=== PATIENT | male | born 1960 | race Caucasian/White ===

== ENCOUNTER 2017-07-30 19:36 | Emergency (ER) | payer MEDICAID ==
[~2017-07-30] VITALS: Ht 182.9 cm; Wt 75.2 kg
[~2017-07-30 19:36] MED LIST: ALLO100T PO; CLON-527 PO; FLUO15CR TOP; LORA10TA65 PO; METH4TAB3 PO; PRED20TA PO
[2017-07-30] MEDS ORDERED: famotidine/PF 10 mg/ml inj IV ONE (20:25)
[2017-07-30] MEDS ORDERED: normal saline 1000ML IV soln IVB ONE ×2 (20:25)
[2017-07-30] MEDS ORDERED: ondansetron/PF 4mg/2ml inj IV ONE (20:25)
[2017-07-30] MEDS ORDERED: PANT-47 PO (20:33)
[2017-07-30 21:48] VITALS: BP 110/74
== END 2017-07-30 21:50 | disposition home or self-care (01) ==
LOC: ER 19:37
DX: K52.9 Noninfective gastroenteritis and colitis, unspecified (principal); G89.29 Other chronic pain; F17.200 Nicotine dependence, unspecified, uncomplicated; F15.10 Other stimulant abuse, uncomplicated
CPT/HCPCS: 96361; 96374; 96375; 99284; J2405; J3490; J7030

== ENCOUNTER 2017-11-27 08:27 | Emergency (ER) | payer MEDICAID ==
[~2017-11-27] VITALS: Ht 182.9 cm; Wt 72.7 kg
[~2017-11-27 08:27] MED LIST changes: +PANT-47 PO
[2017-11-27] MEDS ORDERED: normal saline 1000ML IV soln IV ONE (08:30)
[2017-11-27] MEDS ORDERED: potassium Cl oral solution 20 MEQ/15 ML PO ONE (08:30)
[2017-11-27] MEDS ORDERED: magnesium 2GM in 50ml NS 50 ML IV ONE (08:30)
[2017-11-27] MEDS ORDERED: LORazepam 2 mg/ml vial IV ONE (08:30)
[2017-11-27 08:54] LABS: BASOPHILS # (AUTO) 0.1 X10'3 (0-0.2); BASOPHILS % (AUTO) 0.7 % (0-1); EOSINOPHILS # (AUTO) 0.7 X10'3 (0-0.9); EOSINOPHILS % (AUTO) 6.6 % (0-6); HEMATOCRIT 40.9 % (42.0-52.0); HEMOGLOBIN 14.3 g/dl (14.0-17.9); LYMPHOCYTES # (AUTO) 1.4 X10'3 (1.1-4.8); LYMPHOCYTES % (AUTO) 13.7 % (21-51); MEAN CORPUSCULAR HEMOGLOBIN 30.8 PG (27.0-31.0); MEAN CORPUSCULAR HGB CONC 34.9 % (33.0-36.5); MEAN CORPUSCULAR VOLUME 88.1 FL (78-98); MEAN PLATELET VOLUME 8.4 FL (7.4-10.4); MONOCYTES # (AUTO) 0.7 X10'3 (0-0.9); MONOCYTES % (AUTO) 6.5 % (2-12); NEUTROPHILS # (AUTO) 7.4 X10'3 (1.8-7.7); NEUTROPHILS % (AUTO) 72.5 % (42-75); PLATELET COUNT 206 X10'3 (140-440); RED BLOOD COUNT 4.64 X10'6 (4.70-6.10); WHITE BLOOD COUNT 10.2 X10'3 (4.5-11.0)
[2017-11-27 09:09] LABS: ALANINE AMINOTRANSFERASE 25 U/L (12-78); ALBUMIN 3.5 G/DL (3.4-5.0); ALKALINE PHOSPHATASE 85 IU/L (46-116); ANION GAP 15 (8-16); ASPARTATE AMINO TRANSFERASE 33 U/L (10-37); BILIRUBIN,TOTAL 0.7 MG/DL (0.1-1.0); BLOOD UREA NITROGEN 28 MG/DL (7-18); BUN/CREATININE RATIO 19.3 (5.4-32.0); CALCIUM 8.9 MG/DL (8.5-10.1); CHLORIDE 104 MMOL/L (99-107); CREATININE 1.45 MG/DL (0.60-1.10); GLUCOSE 101 MG/DL (70-104); POTASSIUM 3.6 MMOL/L (3.5-5.1); SODIUM 141 MMOL/L (135-145); TOTAL CARBON DIOXIDE 21.7 MMOL/L (24-32); TOTAL PROTEIN 7.1 G/DL (6.4-8.2); eGFR 50 ML/MIN
[2017-11-27 09:10] LABS: CREATINE KINASE 569 U/L (39-308); ETHANOL < 0.010 GM/DL (0.0-0.010)
[2017-11-27 09:30] LABS: CLARITY,URINE CLEAR (Clear); COLOR,URINE YELLOW (Yellow); GLUCOSE, URINE NEGATIVE (Neg); KETONES,URINE 15 mg/dl (Neg); LEUKOCYTE ESTERASE ,URINE NEGATIVE (Neg); NITRITES, URINE NEGATIVE (Neg); OCCULT BLOOD,URINE TRACE-INTACT (Neg); PROTEIN,URINE TRACE mg/dl (Neg); UA COLLECTION TYPE STRAIGHT CATH; UROBILINOGEN,URINE 0.2 E.U/dL (0.2-1.0)
[2017-11-27 09:35] LABS: SQUAMOUS EPITHELIAL CELL,UR FEW /LPF (FEW)
[2017-11-27 09:36] LABS: BACTERIA,URINE FEW /HPF (Neg); TRANSITIONAL EPI CELLS,URINE FEW /HPF; WBC,URINE NONE SEEN /HPF (0-4)
[2017-11-27 09:38] LABS: URINE AMPHETAMINE SCREEN POSITIVE (Neg); URINE BARBITUATE SCREEN NEGATIVE (Neg); URINE BENZODIAZEPINES SCREEN NEGATIVE (Neg); URINE CANNABINOID SCREEN NEGATIVE (Neg); URINE COCAINE SCREEN NEGATIVE (Neg); URINE METHADONE SCREEN NEGATIVE (Neg); URINE OPIATE SCREEN NEGATIVE (Neg); URINE PHENCYCLIDINE SCREEN NEGATIVE (Neg)
[2017-11-27 10:55] VITALS: BP 104/57
== END 2017-11-27 10:58 | disposition home or self-care (01) ==
LOC: ER 08:27
DX: G40.909 Epilepsy, unspecified, not intractable, without status epilepticus (principal); F32.9 Major depressive disorder, single episode, unspecified
CPT/HCPCS: 36415; 71045; 80053; 80305; 80320; 81001; 82550; 82948; 83605; 85025; 93005; 96365; 96375; 99291; A4353; J2060; J3475; J7030

== ENCOUNTER 2018-01-05 08:46 | Emergency (ER) | payer MEDICAID ==
[~2018-01-05] VITALS: Ht 185.4 cm; Wt 71.9 kg
[2018-01-05 08:55] VITALS: BP 101/63
[2018-01-05] MEDS ORDERED: dexamethasone sod phosphate 10mg/ml inj IM STA (10:08)
[2018-01-05] MEDS ORDERED: COLC1TAB2 PO (10:15)
== END 2018-01-05 10:52 | disposition home or self-care (01) ==
LOC: ER 08:46
DX: M25.531 Pain in right wrist (principal); G89.29 Other chronic pain; F15.90 Other stimulant use, unspecified, uncomplicated; Z79.899 Other long term (current) drug therapy
CPT/HCPCS: 96372; 99283; J1100

== ENCOUNTER 2018-02-24 13:01 | Emergency (ER) | payer MEDICAID ==
[~2018-02-24] VITALS: Ht 182.9 cm; Wt 72.7 kg
[~2018-02-24 13:01] MED LIST changes: +COLC1TAB2 PO
[2018-02-24] MEDS ORDERED: HYDR-569 PO (13:49)
[2018-02-24 13:59] VITALS: BP 115/75
== END 2018-02-24 14:59 | disposition home or self-care (01) ==
LOC: ER 13:01
DX: S82.55XA Nondisplaced fracture of medial malleolus of left tibia, initial encounter for closed fracture (principal); G89.29 Other chronic pain; F15.90 Other stimulant use, unspecified, uncomplicated; Z79.899 Other long term (current) drug therapy; W18.39XA Other fall on same level, initial encounter; Y93.89 Activity, other specified; Y92.89 Other specified places as the place of occurrence of the external cause; Y99.8 Other external cause status
CPT/HCPCS: 29515; 73610; 99284

== ENCOUNTER 2018-05-22 14:47 | Emergency (ER) | payer MEDICAID ==
[~2018-05-22] VITALS: Ht 182.9 cm; Wt 72.7 kg
[~2018-05-22 14:47] MED LIST changes: +HYDR-4383 PO
[2018-05-22 14:50] VITALS: BP 115/70
[2018-05-22 16:30] LABS: ALANINE AMINOTRANSFERASE 28 U/L (12-78); ALBUMIN 3.1 G/DL (3.4-5.0); ALBUMIN/GLOBULIN RATIO 0.6 (1.1-1.5); ALKALINE PHOSPHATASE 85 IU/L (46-116); ANION GAP 12 (8-16); ASPARTATE AMINO TRANSFERASE 23 U/L (10-37); BILIRUBIN,TOTAL 0.5 MG/DL (0.1-1.0); BLOOD UREA NITROGEN 9 MG/DL (7-18); BUN/CREATININE RATIO 9.3 (5.4-32.0); CALCIUM 9.2 MG/DL (8.5-10.1); CHLORIDE 100 MMOL/L (99-107); CREATININE 0.97 MG/DL (0.60-1.10); GLUCOSE 103 MG/DL (70-104); POTASSIUM 3.7 MMOL/L (3.5-5.1); SODIUM 135 MMOL/L (135-145); TOTAL CARBON DIOXIDE 22.6 MMOL/L (24-32); TOTAL PROTEIN 7.9 G/DL (6.4-8.2); eGFR 80 ML/MIN
[2018-05-22 16:33] LABS: BASOPHILS # (AUTO) 0.1 X10'3 (0-0.2); BASOPHILS % (AUTO) 0.7 % (0-1); EOSINOPHILS # (AUTO) 0.3 X10'3 (0-0.9); EOSINOPHILS % (AUTO) 2.9 % (0-6); HEMATOCRIT 42.4 % (42.0-52.0); HEMOGLOBIN 14.1 g/dl (14.0-17.9); LYMPHOCYTES # (AUTO) 1.2 X10'3 (1.1-4.8); LYMPHOCYTES % (AUTO) 12.1 % (21-51); MEAN CORPUSCULAR HEMOGLOBIN 29.6 PG (27.0-31.0); MEAN CORPUSCULAR HGB CONC 33.4 % (33.0-36.5); MEAN CORPUSCULAR VOLUME 88.7 FL (78-98); MONOCYTES # (AUTO) 0.7 X10'3 (0-0.9); MONOCYTES % (AUTO) 6.7 % (2-12); NEUTROPHILS # (AUTO) 7.6 X10'3 (1.8-7.7); NEUTROPHILS % (AUTO) 77.6 % (42-75); PLATELET COUNT 278 X10'3 (140-440); RED BLOOD COUNT 4.78 X10'6 (4.70-6.10); RED CELL DISTRIBUTION WIDTH 13.9 % (11.5-14.5); WHITE BLOOD COUNT 9.8 X10'3 (4.5-11.0)
[2018-05-22] MEDS ORDERED: PRED50TA PO (17:04)
[2018-05-22] MEDS ORDERED: NAPR-56 PO (17:04)
[2018-05-22] MEDS ORDERED: predniSONE 20 mg tablet PO ONE (17:05)
[2018-05-22] MEDS ORDERED: colchicine 0.6mg tablet PO ONE (17:05)
== END 2018-05-22 17:38 | disposition home or self-care (01) ==
LOC: ER 14:48
DX: M10.9 Gout, unspecified (principal); G89.29 Other chronic pain; F12.90 Cannabis use, unspecified, uncomplicated; Z79.899 Other long term (current) drug therapy
CPT/HCPCS: 36415; 80053; 84550; 85025; 99283; J7512

== ENCOUNTER 2019-06-18 20:32 | Emergency (ER) | payer MEDICAID ==
[~2019-06-18] VITALS: Ht 182.9 cm; Wt 72.0 kg
[~2019-06-18 20:32] MED LIST changes: -ALLO100T PO; -CLON-527 PO; -COLC1TAB2 PO; -HYDR-4383 PO; -LORA10TA65 PO; -METH4TAB3 PO; -PANT-47 PO; -PRED20TA PO; +valproic acid 250mg capsule PO ONE
[2019-06-18] MEDS ORDERED: normal saline 1000ML IV soln IVB ONE ×2 (22:00→22:35)
--- NOTE | 2019-06-18 22:00 | NUR ---
PT DIFFICULT STICK DR GOLDSMITH AWARE . X2 ATTEMPTS WITHOUT SUCESS WILL TRY TO PO HYDRATE
[2019-06-18 22:37] LABS: BASOPHILS # (AUTO) 0.1 X10'3 (0-0.2); BASOPHILS % (AUTO) 1.1 % (0-1); EOSINOPHILS # (AUTO) 0.4 X10'3 (0-0.9); EOSINOPHILS % (AUTO) 4.9 % (0-6); HEMOGLOBIN 16.2 g/dl (14.0-17.9); LYMPHOCYTES # (AUTO) 2.4 X10'3 (1.1-4.8); LYMPHOCYTES % (AUTO) 29.6 % (21-51); MEAN CORPUSCULAR HEMOGLOBIN 30.8 PG (27.0-31.0); MEAN CORPUSCULAR HGB CONC 34.5 g/dL (33.0-36.5); MEAN CORPUSCULAR VOLUME 89.3 FL (78-98); MEAN PLATELET VOLUME 7.9 FL (7.4-10.4); MONOCYTES # (AUTO) 0.6 X10'3 (0-0.9); MONOCYTES % (AUTO) 7.3 % (2-12); NEUTROPHILS # (AUTO) 4.7 X10'3 (1.8-7.7); NEUTROPHILS % (AUTO) 57.1 % (42-75); PLATELET COUNT 234 X10'3 (140-440); RED BLOOD COUNT 5.26 X10'6 (4.70-6.10); RED CELL DISTRIBUTION WIDTH 13.6 % (11.5-14.5); WHITE BLOOD COUNT 8.2 X10'3 (4.5-11.0)
[2019-06-18] MEDS ORDERED: folic acid 1mg tablet PO ONE (22:45)
[2019-06-18] MEDS ORDERED: thiamine 100mg tablet PO ONE (22:45)
[2019-06-18] MEDS ORDERED: diazepam 5mg tablet PO ONE (22:45)
[2019-06-18] MEDS ORDERED: chlordiazePOXIDE 25mg capsule PO ONE (22:45)
[2019-06-18] MEDS ORDERED: NO HOME MEDS (22:48)
[2019-06-18 22:49] LABS: ALANINE AMINOTRANSFERASE 25 U/L (12-78); ALBUMIN/GLOBULIN RATIO 1.1 (1.1-1.5); ALKALINE PHOSPHATASE 95 IU/L (46-116); ANION GAP 8 (8-16); ASPARTATE AMINO TRANSFERASE 20 U/L (10-37); BILIRUBIN,TOTAL 0.5 MG/DL (0.1-1.0); BLOOD UREA NITROGEN 11 MG/DL (7-18); BUN/CREATININE RATIO 9.8 (5.4-32.0); CALCIUM 9.4 MG/DL (8.5-10.1); CHLORIDE 104 MMOL/L (99-107); CREATININE 1.12 MG/DL (0.60-1.10); ETHANOL 0.035 GM/DL (0.0-0.010); GLUCOSE 87 MG/DL (70-104); MAGNESIUM 1.7 MG/DL (1.5-2.4); PARTIAL THROMBOPLASTIN TIME 30 SECONDS (22-32); POTASSIUM 4.1 MMOL/L (3.5-5.1); SODIUM 139 MMOL/L (135-145); TOTAL CARBON DIOXIDE 27.1 MMOL/L (24-32); TOTAL PROTEIN 7.6 G/DL (6.4-8.2); eGFR 67 ML/MIN
--- NOTE | 2019-06-18 22:51 | NUR ---
pt states he used to be on medicine, but not for several years. Depakote/gabapentin
[2019-06-18] MEDS ORDERED: valproic acid 250mg capsule PO ONE (23:20)
[2019-06-18] MEDS ORDERED: GABA-530 PO (23:32)
[2019-06-18] MEDS ORDERED: DIVA500T2 PO (23:32)
--- NOTE | 2019-06-18 23:39 | NUR ---
SPOKE WITH DR GOLDSMITH AGAIN ABOUT PT NOT RECIEVING FLUIDS VIA IV AND UA NOT OBTAINABLE. DR GOLDSMITH AWARE AND WILL CONTINUE TO MONITOR
--- NOTE | 2019-06-18 23:42 | NUR ---
PHONED PT HOME REQUESTED BY EMPLOYMENT ASSISTANT . NO ANSWER MAIL BOX IS FULL WILL TRY TO CALL BACK IN 30 MIN PT HAS TRAVELLED HOME TO CHECK ON HER KIDS , STATED SHE WOULD RETURN TO UNIT IN 2 HOURS
--- NOTE | 2019-06-19 01:02 | NUR ---
called pt home to reach pt to merchandise pickup/receiving associate pt who has been discharged , no answer voicemail box is full
[2019-06-19 01:04] VITALS: BP 128/78
== END 2019-06-19 02:03 | disposition home or self-care (01) ==
LOC: ER 20:33
DX: G40.909 Epilepsy, unspecified, not intractable, without status epilepticus (principal); F10.129 Alcohol abuse with intoxication, unspecified; G89.29 Other chronic pain; F32.9 Major depressive disorder, single episode, unspecified; F12.90 Cannabis use, unspecified, uncomplicated; Z79.899 Other long term (current) drug therapy; Y90.0 Blood alcohol level of less than 20 mg/100 ml
CPT/HCPCS: 36415; 80053; 80320; 83735; 85025; 85610; 85730; 99284

== ENCOUNTER 2019-08-28 10:39 | Emergency (ER) | payer MEDICAID ==
[~2019-08-28] VITALS: Ht 182.9 cm; Wt 72.7 kg
[~2019-08-28 10:39] MED LIST changes: +DIVA500T2 PO; -FLUO15CR TOP; +GABA-530 PO; +NO HOME MEDS; -valproic acid 250mg capsule PO ONE
[2019-08-28 11:03] VITALS: BP 111/71
--- NOTE | 2019-08-28 12:18 | NUR ---
Dr Devine at bedside.
[2019-08-28] MEDS ORDERED: dexamethasone sod phosphate 10mg/ml inj IM STA (12:23)
[2019-08-28] MEDS ORDERED: IBUP-1984 PO (12:24)
== END 2019-08-28 12:47 | disposition home or self-care (01) ==
LOC: ER 10:40
DX: M10.9 Gout, unspecified (principal); M25.561 Pain in right knee; G89.29 Other chronic pain; F32.9 Major depressive disorder, single episode, unspecified; F17.200 Nicotine dependence, unspecified, uncomplicated; F12.90 Cannabis use, unspecified, uncomplicated; Z86.69 Personal history of other diseases of the nervous system and sense organs; Z79.899 Other long term (current) drug therapy
CPT/HCPCS: 96372; 99283; J1100

== ENCOUNTER 2019-10-08 16:25 | Emergency (ER) | payer MEDICAID ==
[~2019-10-08] VITALS: Ht 182.9 cm; Wt 72.7 kg
[2019-10-08 18:26] VITALS: BP 122/84
[2019-10-08] MEDS ORDERED: FAMO40TA73 PO (18:52)
[2019-10-08] MEDS ORDERED: PRED10TA23 PO (18:52)
[2019-10-08] MEDS ORDERED: DIPH25CA83 PO (18:52)
== END 2019-10-08 19:09 | disposition home or self-care (01) ==
LOC: ER 16:26
DX: L23.7 Allergic contact dermatitis due to plants, except food (principal); G89.29 Other chronic pain; F32.9 Major depressive disorder, single episode, unspecified; F12.90 Cannabis use, unspecified, uncomplicated; Z86.69 Personal history of other diseases of the nervous system and sense organs; Z79.899 Other long term (current) drug therapy
CPT/HCPCS: 99283

== ENCOUNTER 2019-12-25 19:46 | Emergency (ER) | payer MEDICAID ==
[~2019-12-25] VITALS: Ht 182.9 cm; Wt 75.0 kg
[~2019-12-25 19:46] MED LIST changes: +DIPH25CA83 PO; +FAMO40TA73 PO
--- NOTE | 2019-12-25 20:09 | NUR ---
OSPINA LAMP, AND FLOUROCENE IN ROOM
[2019-12-25] MEDS ORDERED: proparacaine 0.5% ophthalmic drops 15ml EACHEYE ONE (20:25)
[2019-12-25] MEDS ORDERED: VIG0.5OS LEFTEYE (21:03)
[2019-12-25 21:11] VITALS: BP 121/87
== END 2019-12-25 21:12 | disposition home or self-care (01) ==
LOC: ER 19:47
DX: T15.82XA Foreign body in other and multiple parts of external eye, left eye, initial encounter (principal); H10.9 Unspecified conjunctivitis; G89.29 Other chronic pain; M10.9 Gout, unspecified; F32.9 Major depressive disorder, single episode, unspecified; F12.90 Cannabis use, unspecified, uncomplicated; Z86.69 Personal history of other diseases of the nervous system and sense organs; Z79.899 Other long term (current) drug therapy; X58.XXXA Exposure to other specified factors, initial encounter; Y93.89 Activity, other specified; Y92.89 Other specified places as the place of occurrence of the external cause; Y99.8 Other external cause status
CPT/HCPCS: 65205; 99284

== ENCOUNTER 2020-05-05 18:03 | Emergency (ER) | payer MEDICAID ==
[~2020-05-05] VITALS: Ht 182.9 cm; Wt 77.4 kg
[2020-05-05 18:08] VITALS: BP 120/76
[2020-05-05] MEDS ORDERED: prednisone 10mg tablet PO ONE (19:00)
[2020-05-05] MEDS ORDERED: predniSONE 20 mg tablet PO ONE (19:00)
== END 2020-05-05 19:13 | disposition home or self-care (01) ==
LOC: ER 18:03
DX: M13.832 Other specified arthritis, left wrist (principal); M79.642 Pain in left hand; M79.89 Other specified soft tissue disorders; G89.29 Other chronic pain; M10.9 Gout, unspecified; F32.9 Major depressive disorder, single episode, unspecified; F12.90 Cannabis use, unspecified, uncomplicated; Z86.69 Personal history of other diseases of the nervous system and sense organs; Z79.899 Other long term (current) drug therapy
CPT/HCPCS: 99283; J7512

== ENCOUNTER 2020-08-23 15:23 | Emergency (ER) | payer MEDICAID ==
[~2020-08-23] VITALS: Ht 182.9 cm; Wt 78.0 kg
[2020-08-23 15:53] VITALS: BP 137/84
[2020-08-23] MEDS ORDERED: triamcinolone acetonide 40mg/ml inj IM ONE (17:30)
[2020-08-23] MEDS ORDERED: BETA15OI2 TOP (17:39)
== END 2020-08-23 18:00 | disposition home or self-care (01) ==
LOC: ER 15:24
DX: L23.9 Allergic contact dermatitis, unspecified cause (principal); G43.909 Migraine, unspecified, not intractable, without status migrainosus; G89.29 Other chronic pain; M10.9 Gout, unspecified; F12.90 Cannabis use, unspecified, uncomplicated; Z86.19 Personal history of other infectious and parasitic diseases; Z79.899 Other long term (current) drug therapy
CPT/HCPCS: 96372; 99283; J3301

== ENCOUNTER 2022-05-26 06:32 | Emergency (ER) | payer MEDICAID ==
[~2022-05-26] VITALS: Ht 182.9 cm; Wt 72.7 kg
[~2022-05-26 06:32] MED LIST changes: +BETA15OI2 TOP
[2022-05-26 06:51] VITALS: BP 107/62
[2022-05-26] MEDS ORDERED: ketorolac trometh. 30mg/ml inj. IM ONE (11:25)
[2022-05-26 12:08] LABS: BASOPHILS # (AUTO) 0.1 X10'3 (0-0.2); EOSINOPHILS # (AUTO) 0.1 X10'3 (0-0.9); EOSINOPHILS % (AUTO) 0.7 % (0-6); HEMOGLOBIN 12.3 g/dl (14.0-17.9); LYMPHOCYTES # (AUTO) 1.6 X10'3 (1.1-4.8); LYMPHOCYTES % (AUTO) 16.9 % (21-51); MEAN CORPUSCULAR HEMOGLOBIN 29.3 PG (27.0-31.0); MEAN CORPUSCULAR HGB CONC 33.3 g/dL (33.0-36.5); MEAN CORPUSCULAR VOLUME 88.2 FL (78-98); MEAN PLATELET VOLUME 8.6 FL (7.4-10.4); MONOCYTES # (AUTO) 0.9 X10'3 (0-0.9); MONOCYTES % (AUTO) 9.7 % (2-12); NEUTROPHILS # (AUTO) 6.9 X10'3 (1.8-7.7); NEUTROPHILS % (AUTO) 71.7 % (42-75); PLATELET COUNT 222 X10'3 (140-440); RED CELL DISTRIBUTION WIDTH 15.1 % (11.5-14.5); WHITE BLOOD COUNT 9.6 X10'3 (4.5-11.0)
[2022-05-26 12:22] LABS: ALANINE AMINOTRANSFERASE 24 U/L (12-78); ALBUMIN 3.2 G/DL (3.4-5.0); ALBUMIN/GLOBULIN RATIO 0.8 (1.1-1.5); ALKALINE PHOSPHATASE 79 IU/L (46-116); ANION GAP 10 (8-16); ASPARTATE AMINO TRANSFERASE 18 U/L (10-37); BILIRUBIN,TOTAL 0.3 MG/DL (0.1-1.0); BLOOD UREA NITROGEN 12 MG/DL (7-18); BUN/CREATININE RATIO 14.1 (5.4-32.0); CALCIUM 8.7 MG/DL (8.5-10.1); CHLORIDE 105 MMOL/L (99-107); CREATININE 0.85 MG/DL (0.60-1.10); GLUCOSE 118 MG/DL (70-104); POTASSIUM 3.8 MMOL/L (3.5-5.1); SODIUM 138 MMOL/L (135-145); TOTAL CARBON DIOXIDE 23.5 MMOL/L (24-32); eGFR > 90 ML/MIN
[2022-05-26] MEDS ORDERED: colchicine 0.6mg tablet PO ONE (13:20)
[2022-05-26] MEDS ORDERED: cephalexin 250mg capsule PO ONE (13:20)
[2022-05-26] MEDS ORDERED: dexamethasone 4mg tablet PO ONE (13:20)
[2022-05-26] MEDS ORDERED: sulfamethoxazole/trimethoprim DS (800/160mg) tablet PO ONE (13:20)
[2022-05-26] MEDS ORDERED: COLC0.6T72 PO (13:50)
[2022-05-26] MEDS ORDERED: SULF1TAB49 PO (13:50)
[2022-05-26] MEDS ORDERED: CEPH250T PO (13:50)
== END 2022-05-26 14:00 | disposition home or self-care (01) ==
LOC: ER 06:34
DX: M10.9 Gout, unspecified (principal); M25.531 Pain in right wrist; G89.29 Other chronic pain; F32.A Depression, unspecified; F17.200 Nicotine dependence, unspecified, uncomplicated; F12.90 Cannabis use, unspecified, uncomplicated; Z86.69 Personal history of other diseases of the nervous system and sense organs; Z59.00 Homelessness unspecified; Z79.2 Long term (current) use of antibiotics; Z79.899 Other long term (current) drug therapy
CPT/HCPCS: 36415; 73110; 80053; 84145; 84550; 85025; 96372; 99284; J1885

== ENCOUNTER 2022-06-03 13:55 | Emergency (ER) | payer MEDICAID ==
[~2022-06-03] VITALS: Ht 182.9 cm; Wt 80.0 kg
[~2022-06-03 13:55] MED LIST changes: +CEPH250T PO; +COLC0.6T72 PO; +SULF1TAB49 PO
[2022-06-03 14:26] VITALS: BP 138/71
[2022-06-04] MEDS ORDERED: PANT20TA18 PO (14:07)
[2022-06-04] MEDS ORDERED: CEPH500C2 PO (14:07)
[2022-06-04] MEDS ORDERED: INDO50CA96 PO (14:07)
== END 2022-06-03 18:17 | disposition left against medical advice (07) ==
LOC: ER 13:56
DX: M79.601 Pain in right arm (principal); Z53.21 Procedure and treatment not carried out due to patient leaving prior to being seen by health care provider

== ENCOUNTER 2022-06-04 08:58 | Emergency (ER) | payer MEDICAID ==
[~2022-06-04] VITALS: Ht 182.9 cm; Wt 68.2 kg
[~2022-06-04 08:58] MED LIST changes: -CEPH250T PO; -SULF1TAB49 PO
[2022-06-04 09:02] VITALS: BP 123/70
[2022-06-04] MEDS ORDERED: HYDROcodone/acetaminophen 5mg/325mg tablet PO ONE (11:45)
[2022-06-04 12:08] LABS: BASOPHILS # (AUTO) 0.1 X10'3 (0-0.2); BASOPHILS % (AUTO) 0.8 % (0-1); EOSINOPHILS # (AUTO) 0.8 X10'3 (0-0.9); EOSINOPHILS % (AUTO) 6.9 % (0-6); HEMATOCRIT 39.3 % (42.0-52.0); HEMOGLOBIN 13.2 g/dl (14.0-17.9); LYMPHOCYTES # (AUTO) 1.9 X10'3 (1.1-4.8); MEAN CORPUSCULAR HEMOGLOBIN 29.3 PG (27.0-31.0); MEAN CORPUSCULAR HGB CONC 33.7 g/dL (33.0-36.5); MEAN PLATELET VOLUME 7.9 FL (7.4-10.4); MONOCYTES # (AUTO) 0.8 X10'3 (0-0.9); MONOCYTES % (AUTO) 6.7 % (2-12); NEUTROPHILS # (AUTO) 7.8 X10'3 (1.8-7.7); NEUTROPHILS % (AUTO) 68.6 % (42-75); PLATELET COUNT 303 X10'3 (140-440); RED BLOOD COUNT 4.52 X10'6 (4.70-6.10); WHITE BLOOD COUNT 11.4 X10'3 (4.5-11.0)
[2022-06-04 12:34] LABS: CHLORIDE 107 MMOL/L (99-107); POTASSIUM 4.1 MMOL/L (3.5-5.1); SODIUM 139 MMOL/L (135-145)
[2022-06-04 13:06] LABS: ALANINE AMINOTRANSFERASE 16 U/L (12-78); ALBUMIN 3.1 G/DL (3.4-5.0); ALBUMIN/GLOBULIN RATIO 0.8 (1.1-1.5); ALKALINE PHOSPHATASE 66 IU/L (46-116); ANION GAP 8 (8-16); ASPARTATE AMINO TRANSFERASE 18 U/L (10-37); BILIRUBIN,TOTAL 0.3 MG/DL (0.1-1.0); BLOOD UREA NITROGEN 15 MG/DL (7-18); BUN/CREATININE RATIO 18.1 (5.4-32.0); CALCIUM 9.5 MG/DL (8.5-10.1); CREATININE 0.83 MG/DL (0.60-1.10); GLUCOSE 105 MG/DL (70-104); TOTAL CARBON DIOXIDE 24.4 MMOL/L (24-32); TOTAL PROTEIN 7.1 G/DL (6.4-8.2); eGFR > 90 ML/MIN
[2022-06-04] MEDS ORDERED: INDO50CA96 PO (14:07)
[2022-06-04] MEDS ORDERED: CEPH500C2 PO (14:07)
[2022-06-04] MEDS ORDERED: PANT20TA18 PO (14:07)
== END 2022-06-04 14:19 | disposition home or self-care (01) ==
LOC: ER 08:58
DX: M79.641 Pain in right hand (principal); M79.89 Other specified soft tissue disorders; G89.29 Other chronic pain; M54.9 Dorsalgia, unspecified; F32.A Depression, unspecified; F12.10 Cannabis abuse, uncomplicated; Z79.899 Other long term (current) drug therapy
CPT/HCPCS: 36415; 73130; 80053; 84550; 85025; 85651; 99284

== ENCOUNTER 2022-06-08 09:04 | Emergency (ER) | payer MEDICAID ==
[~2022-06-08] VITALS: Ht 182.9 cm; Wt 68.2 kg
[~2022-06-08 09:04] MED LIST changes: +CEPH500C2 PO; +INDO50CA96 PO; +PANT20TA18 PO
[2022-06-08 09:53] VITALS: BP 130/82
[2022-06-08] MEDS ORDERED: IBUP-1986 PO (10:57)
== END 2022-06-08 11:10 | disposition home or self-care (01) ==
LOC: ER 09:05
DX: M79.641 Pain in right hand (principal); G89.29 Other chronic pain; M54.50 Low back pain, unspecified; F12.90 Cannabis use, unspecified, uncomplicated; Z59.00 Homelessness unspecified
CPT/HCPCS: 29125; 99283

== ENCOUNTER 2022-07-07 14:01 | Emergency (ER) | payer MEDICAID ==
[~2022-07-07] VITALS: Ht 182.9 cm; Wt 72.0 kg
[~2022-07-07 14:01] MED LIST changes: -CEPH500C2 PO; +IBUP-1986 PO
[2022-07-07 14:05] VITALS: BP 144/69
[2022-07-07] MEDS ORDERED: dexamethasone sod phosphate 10mg/ml inj PO STA (14:32)
[2022-07-07] MEDS ORDERED: INDO50CA96 PO (14:37)
[2022-07-07] MEDS ORDERED: PRED20TA PO (14:37)
== END 2022-07-07 15:13 | disposition home or self-care (01) ==
LOC: ER 14:01
DX: M10.9 Gout, unspecified (principal); R21 Rash and other nonspecific skin eruption; G89.29 Other chronic pain; F32.9 Major depressive disorder, single episode, unspecified; F12.90 Cannabis use, unspecified, uncomplicated; Z59.00 Homelessness unspecified; Z79.899 Other long term (current) drug therapy
CPT/HCPCS: 99283; J1100

== ENCOUNTER 2022-07-15 07:57 | Emergency (ER) | payer MEDICAID ==
[~2022-07-15] VITALS: Ht 182.9 cm; Wt 72.0 kg
[2022-07-15 08:03] VITALS: BP 128/72
[2022-07-15] MEDS ORDERED: ketorolac trometh inj. 60 MG/2 ML VIAL IM ONE (08:30)
[2022-07-15] MEDS ORDERED: acetaminophen 325mg tablet PO ONE (08:30)
[2022-07-15] MEDS ORDERED: ACET-1025 PO (08:39)
[2022-07-15] MEDS ORDERED: IBUP-1984 PO (08:39)
== END 2022-07-15 08:58 | disposition home or self-care (01) ==
LOC: ER 07:58
DX: M25.562 Pain in left knee (principal); G89.29 Other chronic pain; M10.9 Gout, unspecified; F32.9 Major depressive disorder, single episode, unspecified; F12.90 Cannabis use, unspecified, uncomplicated; Z59.00 Homelessness unspecified; Z79.899 Other long term (current) drug therapy
CPT/HCPCS: 96372; 99283; J1885

== ENCOUNTER 2023-04-03 07:38 | Emergency (ER) | payer MEDICAID ==
[~2023-04-03] VITALS: Ht 185.4 cm; Wt 75.0 kg
[2023-04-03] MEDS ORDERED: normal saline 1000ML IV soln IV ONE (07:55)
[2023-04-03 08:57] LABS: BASOPHILS # (AUTO) 0.1 X10'3 (0-0.2); BASOPHILS % (AUTO) 0.8 % (0-1); EOSINOPHILS # (AUTO) 0.3 X10'3 (0-0.9); HEMATOCRIT 44.2 % (42.0-52.0); HEMOGLOBIN 14.6 g/dl (14.0-17.9); LYMPHOCYTES # (AUTO) 2.2 X10'3 (1.1-4.8); LYMPHOCYTES % (AUTO) 13.9 % (21-51); MEAN CORPUSCULAR HEMOGLOBIN 29.7 PG (27.0-31.0); MEAN CORPUSCULAR VOLUME 89.9 FL (78-98); MEAN PLATELET VOLUME 8.4 FL (7.4-10.4); MONOCYTES # (AUTO) 1.2 X10'3 (0-0.9); MONOCYTES % (AUTO) 7.5 % (2-12); NEUTROPHILS # (AUTO) 12.2 X10'3 (1.8-7.7); NEUTROPHILS % (AUTO) 75.8 % (42-75); PLATELET COUNT 213 X10'3 (140-440); RED BLOOD COUNT 4.91 X10'6 (4.70-6.10); RED CELL DISTRIBUTION WIDTH 14.5 % (11.5-14.5); WHITE BLOOD COUNT 16.1 X10'3 (4.5-11.0)
[2023-04-03] MEDS ORDERED: levoFLOXACIN-Levaquin 500mg/D5 100 ML IV ONE (09:10)
[2023-04-03 09:24] LABS: ALANINE AMINOTRANSFERASE 14 U/L (12-78); ALBUMIN 2.9 G/DL (3.4-5.0); ALBUMIN/GLOBULIN RATIO 0.7 (1.1-1.5); ALKALINE PHOSPHATASE 88 IU/L (46-116); ANION GAP 9 (8-16); ASPARTATE AMINO TRANSFERASE 18 U/L (10-37); BILIRUBIN,TOTAL 0.5 MG/DL (0.1-1.0); BLOOD UREA NITROGEN 25 MG/DL (7-18); BUN/CREATININE RATIO 15.2 (10.0-20.0); CALCIUM 9.1 MG/DL (8.5-10.1); CHLORIDE 106 MMOL/L (99-107); CREATININE 1.65 MG/DL (0.60-1.10); GLUCOSE 129 MG/DL (70-104); MAGNESIUM 2.1 MG/DL (1.5-2.4); POTASSIUM 4.1 MMOL/L (3.5-5.1); SODIUM 138 MMOL/L (135-145); TOTAL CARBON DIOXIDE 23.4 MMOL/L (24-32); TOTAL PROTEIN 6.9 G/DL (6.4-8.2); eCRCL 49 ML/MIN; eGFR 42 ML/MIN
[2023-04-03] MEDS ORDERED: sulfamethoxazole/trimethoprim DS (800/160mg) tablet PO ONE (10:00)
[2023-04-03] MEDS ORDERED: SULF1TAB45 PO (10:36)
[2023-04-03 11:15] VITALS: BP 113/67; PULSE 93; RESP 18; TEMP 98.7; O2SAT 98
== END 2023-04-03 11:21 | disposition home or self-care (01) ==
LOC: ER 07:38
DX: E86.0 Dehydration (principal); R21 Rash and other nonspecific skin eruption; Z86.14 Personal history of Methicillin resistant Staphylococcus aureus infection; G89.29 Other chronic pain; M54.9 Dorsalgia, unspecified; F17.200 Nicotine dependence, unspecified, uncomplicated
CPT/HCPCS: 36415; 71045; 80053; 83605; 83735; 84145; 85025; 87040; 96365; 99284; J1956; J7030; C1758

== ENCOUNTER 2023-04-07 06:49 | Emergency (ER) | payer MEDICAID ==
[~2023-04-07] VITALS: Ht 182.9 cm; Wt 68.2 kg
[~2023-04-07 06:49] MED LIST changes: +SULF1TAB45 PO
[2023-04-07 07:30] VITALS: BP 118/82; PULSE 98; RESP 18; TEMP 98.4; O2SAT 99
--- NOTE | 2023-04-07 13:40 | NUR ---
Pt not in lobby x3 hours
== END 2023-04-07 13:51 | disposition left against medical advice (07) ==
LOC: ER 06:50
DX: R21 Rash and other nonspecific skin eruption (principal); Z53.21 Procedure and treatment not carried out due to patient leaving prior to being seen by health care provider
CPT/HCPCS: 99281

== ENCOUNTER 2023-04-09 08:42 | Emergency (ER) | payer MEDICAID ==
[~2023-04-09] VITALS: Ht 185.4 cm; Wt 73.0 kg
--- NOTE | 2023-04-09 09:05 | NUR ---
Pt here for rash and itcchiness on forehead pt states he was seen here last week and it has not been any better since starting the bactrim. Pt states no pmd at this time. Hx of alcohol and meth abuse. XPLVN
[2023-04-09] MEDS ORDERED: dexamethasone sod phosphate 10mg/ml inj IV STA (09:29)
[2023-04-09] MEDS ORDERED: diphenhydrAMINE 50 mg/ml inj IV ONE (09:35)
[2023-04-09] MEDS ORDERED: emollient combination-Eucerin 200 ML LOTION TP ONE (09:45)
[2023-04-09] MEDS ORDERED: dexamethasone sod phosphate 10mg/ml inj IM STA (09:56)
--- NOTE | 2023-04-09 09:57 | NUR ---
Difficult IV start, attempted once. Medication administration order changed to po/IM
[2023-04-09] MEDS ORDERED: diphenhydrAMINE 25mg capsule PO ONE (10:00)
[2023-04-09] MEDS ORDERED: mineral oil/petrolatum, white cream 60gm jar TP SCH (10:16)
[2023-04-09 10:17] LABS: BASOPHILS % (AUTO) 0.4 % (0-1); EOSINOPHILS # (AUTO) 0.6 X10'3 (0-0.9); EOSINOPHILS % (AUTO) 5.3 % (0-6); HEMATOCRIT 41.8 % (42.0-52.0); HEMOGLOBIN 13.8 g/dl (14.0-17.9); LYMPHOCYTES # (AUTO) 2.2 X10'3 (1.1-4.8); LYMPHOCYTES % (AUTO) 19.2 % (21-51); MEAN CORPUSCULAR HEMOGLOBIN 29.5 PG (27.0-31.0); MEAN CORPUSCULAR VOLUME 89.6 FL (78-98); MONOCYTES # (AUTO) 0.6 X10'3 (0-0.9); MONOCYTES % (AUTO) 5.6 % (2-12); NEUTROPHILS # (AUTO) 7.8 X10'3 (1.8-7.7); NEUTROPHILS % (AUTO) 69.5 % (42-75); PLATELET COUNT 301 X10'3 (140-440); RED BLOOD COUNT 4.66 X10'6 (4.70-6.10); RED CELL DISTRIBUTION WIDTH 14.4 % (11.5-14.5); WHITE BLOOD COUNT 11.2 X10'3 (4.5-11.0)
[2023-04-09 10:30] LABS: ALANINE AMINOTRANSFERASE 20 U/L (12-78); ALBUMIN 3.4 G/DL (3.4-5.0); ALBUMIN/GLOBULIN RATIO 0.8 (1.1-1.5); ALKALINE PHOSPHATASE 87 IU/L (46-116); ANION GAP 8 (8-16); ASPARTATE AMINO TRANSFERASE 18 U/L (10-37); BILIRUBIN,TOTAL 0.6 MG/DL (0.1-1.0); BLOOD UREA NITROGEN 18 MG/DL (7-18); BUN/CREATININE RATIO 13.6 (10.0-20.0); CALCIUM 9.6 MG/DL (8.5-10.1); CHLORIDE 104 MMOL/L (99-107); CREATININE 1.32 MG/DL (0.60-1.10); GLUCOSE 86 MG/DL (70-104); POTASSIUM 4.7 MMOL/L (3.5-5.1); SODIUM 138 MMOL/L (135-145); TOTAL CARBON DIOXIDE 25.9 MMOL/L (24-32); TOTAL PROTEIN 7.6 G/DL (6.4-8.2); eCRCL 60 ML/MIN; eGFR 55 ML/MIN
[2023-04-09] MEDS ORDERED: DIPH-423 PO (11:20)
[2023-04-09] MEDS ORDERED: PRED50TA PO (11:20)
[2023-04-09 11:42] VITALS: TEMP 98
[2023-04-09 11:53] LABS: URINE AMPHETAMINE SCREEN POSITIVE (Neg); URINE BARBITUATE SCREEN NEGATIVE (Neg); URINE BENZODIAZEPINES SCREEN NEGATIVE (Neg); URINE CANNABINOID SCREEN NEGATIVE (Neg); URINE COCAINE SCREEN NEGATIVE (Neg); URINE OPIATE SCREEN NEGATIVE (Neg); URINE PHENCYCLIDINE SCREEN NEGATIVE (Neg)
[2023-04-09 11:54] VITALS: BP 108/63; PULSE 82; RESP 17; O2SAT 99
--- NOTE | 2023-04-09 15:05 | NUR ---
EXECUTIVE COACH ASSESSMENT REVIEWED BY OBI RN, APPROVED
== END 2023-04-09 11:41 | disposition home or self-care (01) ==
LOC: ER 08:43
DX: L98.9 Disorder of the skin and subcutaneous tissue, unspecified (principal); R21 Rash and other nonspecific skin eruption; G89.29 Other chronic pain; M54.9 Dorsalgia, unspecified; F32.A Depression, unspecified; F17.200 Nicotine dependence, unspecified, uncomplicated; Z79.899 Other long term (current) drug therapy
CPT/HCPCS: 36415; 80053; 80305; 85025; 96372; 99284; J1100; J7030; Q0163

== ENCOUNTER 2023-04-22 15:10 | Emergency (ER) | payer MEDICAID ==
[~2023-04-22] VITALS: Ht 185.4 cm; Wt 72.7 kg
[~2023-04-22 15:10] MED LIST changes: +DIPH-423 PO; +PRED50TA PO
[2023-04-22 15:50] VITALS: BP 126/79; PULSE 82; RESP 18; TEMP 97.8; O2SAT 100
--- NOTE | 2023-04-22 17:14 | NUR ---
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
[2023-04-22] MEDS ORDERED: valacyclovir 500mg tablet PO ONE (17:30)
[2023-04-22] MEDS ORDERED: valacyclovir 500mg tablet PO SCH (17:30)
[2023-04-22] MEDS ORDERED: VALA100031 PO (17:35)
[2023-04-22] MEDS ORDERED: LIDOcaine 1%/PF 5ML 10 MG/ML VIAL IJ ONE (17:40)
== END 2023-04-22 18:09 | disposition home or self-care (01) ==
LOC: ER 15:11
DX: B02.9 Zoster without complications (principal); F12.90 Cannabis use, unspecified, uncomplicated; Z79.899 Other long term (current) drug therapy; Z79.1 Long term (current) use of non-steroidal anti-inflammatories (NSAID); Z79.2 Long term (current) use of antibiotics
CPT/HCPCS: 99283

== ENCOUNTER 2023-05-09 07:21 | Emergency (ER) | payer MEDICAID ==
[~2023-05-09] VITALS: Ht 182.9 cm; Wt 74.0 kg
[~2023-05-09 07:21] MED LIST changes: -SULF1TAB45 PO; +VALA100031 PO
--- NOTE | 2023-05-09 08:11 | NUR ---
pt breathing and talking without and signs of distress, pt here for rash and vitals are [place]bale, color and circulation looks good. XPLVN
[2023-05-09] MEDS ORDERED: HYDR-3686 PO (09:09)
[2023-05-09] MEDS ORDERED: CEPH500C81 PO (09:09)
[2023-05-09] MEDS ORDERED: KEN0.1O TOP (09:09)
[2023-05-09 09:21] VITALS: BP 105/78; PULSE 81; RESP 16; TEMP 97.7; O2SAT 99
== END 2023-05-09 09:34 | disposition home or self-care (01) ==
LOC: ER 07:21
DX: L23.9 Allergic contact dermatitis, unspecified cause (principal); G89.29 Other chronic pain; M54.9 Dorsalgia, unspecified; F32.A Depression, unspecified; Z79.899 Other long term (current) drug therapy
CPT/HCPCS: 99283